=== PATIENT | male | born 1950 | race Asian ===

== ENCOUNTER 2024-05-05 12:17 | Day surgery (SDC) | payer MEDICARE, OTHER, SELFPAY ==
[2024-05-05] VITALS (17 sets, daily range): BP systolic 111–162; BP diastolic 52–78; BMI 22.5
[2024-05-05 16:21] LABS: ACT-LR - POC 265 Seconds (116-155)
--- NOTE | 2024-05-05 17:02 | ITS.CL.CATH ---
[employer] - Catheterization
Cardiac Catheterization
Procedure Report:
CARDIAC CATHETERIZATION REPORT
Date of Procedure: 05/05/2024
Referring: Barrett Nichols MD
Indication: Recent angina with markedly ischemic stress test
�
HEMODYNAMIC DATA
AO: 132/69
LV: 132/17
�
LEFT VENTRICULOGRAPHY: Normal ventricular wall motion with EF 64%
�
CORONARY ANGIOGRAPHY
Dominance: Right
Left Main: Normal
LAD: 50% mid LAD stenosis with otherwise mild luminal irregularities in the LAD proper. 30% ostial D1 stenosis.
Circumflex: There is a large bifurcating ramus intermedius with 40% ostial and 50% proximal to mid stenosis. OM1 and OM 2 are tiny. The circumflex terminates with a medium to large OM 3 that has 40% proximal stenosis
RCA: The RCA is dominant with severe ostial stenosis. There is marked pressure dampening upon engagement. There is 40% proximal to mid RCA stenosis. The RCA terminates with a large RPDA which has 30% proximal stenosis and a series of medium sized
right posterolateral branches
At the conclusion of the diagnostic study we attempted unsuccessfully to pass a Nash pressure wire into the ramus intermedius branch. Heparin was used for anticoagulation. A 6 [place] JL 3.5 guide catheter was used. Numerous tip bands were made
on the Nash wire but we were surprisingly unable to get it into the ramus and ultimately abandoned attempts to evaluate this vessel with FloWire.
Angioplasty: The ostial RCA lesion was then treated with stenting. Using an AR-1 guide catheter, a BMW wire was passed into the distal vessel. Direct stenting of the ostial RCA lesion was accomplished with a 3.5 x 15 Xience solomon point SHERMAN deployed
at 14 lynette then postdilated with a 3.5 NC Euphora to 16 lynette. The final angiographic result was outstanding. There were no procedural complications.
�
Closure Device: None-the procedure was performed via the right radial artery. The Miguel's test was normal prior to the procedure.
�
Radiation (mGy): 1061
DAP (cm2.Gy): 67
Fluoroscopy time: 26.8 minutes
�
CONCLUSIONS
1:�Normal left ventricular function with EF 64%
2:�Mild LAD and ramus disease with severe ostial RCA stenosis
3. Successful stenting of ostial RCA lesion using 3.5 x 15 Xience solomon point SHERMAN
4. Recommend dual antiplatelet therapy for 12 months then lifelong aspirin monotherapy
5. Continued attempts at aggressive risk factor modification is necessary to prevent progression of disease
�
�
Copy to: Barrett Nichols MD,, Cristino Trotter MD
�
Mohsen De La Cruz MD, [facility], [facility]
[2024-05-05] MEDS: NSS 1000 IV (17:50)
[2024-05-05] MEDS: LIPITOR 40 MG PO (17:57)
[2024-05-05] MEDS: ZYLOPRIM 100 MG PO (17:57)
[2024-05-05] MEDS: TOPROL XL 25 MG PO (17:57)
--- NOTE | 2024-05-05 18:40 | PTCARENOTE ---
Pt received post procedure at 1730. Right rad band intact with no hematoma. Denies any chest pain or sob. Room air sat 100%.
--- NOTE | 2024-05-06 01:15 | PTCARENOTE ---
Pt. received at change of shift. VSS, Sinus kelley with first degree AVB on tele with HR 50s-60s. Radial band removed at 2130 with no complications. Gauze and tegaderm dressing applied which is c/d/i. Ambulating independently in room without
difficulty. Education provided on activity restrictions. Can make needs known. Call serrano within reach.
[2024-05-06 04:48] VITALS: BP 116/68
[2024-05-06 05:12] LABS: Hematocrit 37.7 % (39.0-52.0); Mean Corp Hgb Conc. 34.5 g/dL (33.0-37.0); Mean Corpuscular Hgb 32.6 pg (27.0-31.0); Mean Corpuscular Volume 94.5 fL (80.0-94.0); Mean Platelet Volume 10.2 fL (7.4-10.4); Platelet Count 151 10^3/uL (130-400); Red Blood Cell Count 3.99 10^6/uL (4.70-6.10); Red Cell Dist. Width 12.6 % (11.5-14.5); White Blood Cell Count 8.4 10^3/uL (4.8-10.8)
[2024-05-06 05:38] LABS: Blood Urea Nitrogen 24 mg/dl (9-20); Calcium 9.1 mg/dl (8.4-10.2); Carbon Dioxide 25 mmol/L (22-30); Chloride 105 mmol/L (98-107); Estimated Creatinine Clearance 87 ml/min; Glucose 118 mg/dl (70-99); HDL Cholesterol 34 mg/dl; LDL Cholesterol, Calculated 114 mg/dl; Potassium 4.6 mmol/L (3.5-5.1); Sodium 140 mmol/L (135-145); Total Cholesterol 172 mg/dl (50-199); Triglyceride 123 mg/dl (10-149); Very Low Density Lipoprotein 24 mg/dl (0-30); eGFR > 60.00
[2024-05-06 07:34] VITALS: BP 124/67
[2024-05-06] MEDS: ASPIR LOW (ENTERIC COATED) 81 MG PO (08:03)
[2024-05-06] MEDS: BENICAR 40 MG PO (08:03)
[2024-05-06] MEDS: PLAVIX 75 MG PO (08:03)
--- NOTE | 2024-05-06 08:34 | W.PN.CD ---
Addendum entered and electronically signed by Juan Ramon Harvey MD 05/06/24 09:56:
73 yo male with CAD admitted following RCA stenting. No chest pain. Exam with RRR, no murmurs, no edema. EKG: sinus kelley, 1st degree AVB. Hgb 13. Stable for discharge on DAPT.
Original Note:
Today's Communication / Plan
-
Discharge planning
Activity restrictions reviewed
Impression / Plan
-
Background: 73M who presented for coronary angiography after angina with abnormal stress testing
Primary marketing automation analyst: Dr. Nichols
Coronary artery disease
-Status post SHERMAN to severe ostial RCA stenosis
-DAPT (aspirin and clopidogrel) uninterrupted for 1 year with aspirin indefinitely
-Right radial site without hematoma
-Hemoglobin stable
-EKG with sinus bradycardia and first-degree AV block
-Continue aggressive risk factor modification
Subjective:
Patient is feeling well. Denies chest pain.
Physical Exam
Vital Signs/Labs
Vital Signs
Temp Pulse Resp BP Pulse Ox
97.8 F 55 16 124/67 99
05/06/24 07:32 05/06/24 08:00 05/06/24 07:32 05/06/24 07:34 05/06/24 07:34
05/05/24 05/06/24 05/07/24
06:59 06:59 06:59
Actual Weight 63.3 kg
05/06/24 04:53
05/06/24 04:53
Triglycerides 123 mg/dl (10-149) 05/06/24 04:53
LDL Cholesterol, Calc 114 mg/dl 05/06/24 04:53
VLDL Cholesterol, Calc 24 mg/dl (0-30) 05/06/24 04:53
HDL Cholesterol 34 mg/dl 05/06/24 04:53
Physical Exam
Constitutional: No acute distress and Comfortable
EENT: Anicteric and Moist mucous membranes
Cardiovascular: Rhythm & rate is regular, Pedal edema is absent and S1S2 is normal
Respiratory: Respiratory effort normal and Lungs clear to auscul.
GI: Soft, Distention absent, Flat, Non tender and Normal bowel sounds
Neuro/Psych: AO x 3
Other: Skin (Warm and dry) and Cath Site (Right radial site without hematoma and bruit)
Data Reviewed
-
Date of Service: May 06, 2024
--- NOTE | 2024-05-06 08:42 | W.DS.TRANS ---
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
-
Discharge Instructions:
Discharge Diagnosis/Procedures Angioplasty and stent to right coronary artery
Diet Low Cholesterol
Activity No strenuous activity
Additional Activity See attached instructions
Driving Restrictions No driving for 24 hours
Bathing Restrictions None
Other Services Cardiac Rehab
Instructions:
Stand-Alone Forms: DC Instructions- Cath/EP Lab
Changes to Home Medications: Yes
Discharge Medications:
DC Medications w/original date entered in [employer]
allopurinol 100 mg tablet 100 mg PO QPM Gout 05/05/24
ascorbic acid (vitamin C) 250 mg chewable tablet (Vitamin C) 250 mg PO DAILY Supplement 05/05/24
aspirin 81 mg tablet,delayed release 81 mg PO DAILY blood thinner 05/05/24
atorvastatin 40 mg tablet 40 mg PO QPM #90 tabs 05/05/24
calcium phosphate,dibasic 77 mg-vitamin D3 400 unit tablet 1 tab PO DAILY Supplement 05/05/24
clopidogrel 75 mg tablet 75 mg PO DAILY #90 tabs 05/05/24
icosapent ethyl 1 gram capsule (Vascepa) 2 g PO DAILY hld 05/05/24
pwxgpe-mduisavd-etheniq 36,000-114,000-180,000 unit capsule,delay rel (Creon) 1 cap PO TIDWMEAL pancreatic replace 05/05/24
metoprolol succinate 25 mg tablet,extended release 24 hr 25 mg PO QPM 05/05/24
nitroglycerin 0.4 mg sublingual tablet 0.4 mg sublingual [id number] PRN chest pain #25 tabs 05/05/24
olmesartan 40 mg tablet 40 mg PO DAILY 05/05/24
Home Medication Changes
New medications:
Atorvastatin 40 mg
Clopidogrel 75 mg
Nitrostat as needed
Pending Results: No
--- NOTE | 2024-05-06 11:04 | PTCARENOTE ---
pt discharge instructions provided via patient resource specialist. asked several times for verification of understanding with positive results.
[2024-05-08 09:39] LABS: ACT-LR - POC > 397 Seconds (116-155)
[2024-05-08 20:29] LABS: Hepatitis C Antibody Negative (Negative)
== END 2024-05-06 10:30 | disposition home or self-care (01) ==
LOC: CATH 12:17
PROVIDERS: Nurse Practitioner; ATTENDING PHYSICIAN Internal Medicine Cardiovascular Disease; FAMILY PHYSICIAN Internal Medicine; OTHER PHYSICIAN Internal Medicine Cardiovascular Disease
DX: I25.119 Atherosclerotic heart disease of native coronary artery with unspecified angina pectoris (principal); R94.39 Abnormal result of other cardiovascular function study; I10 Essential (primary) hypertension; E78.5 Hyperlipidemia, unspecified; I44.0 Atrioventricular block, first degree
CPT/HCPCS: 93458; C9600; 80048; 80061; 85027; 85347; 86803; 93005; C1725; C1769; C1874; C1894; Q9967